=== PATIENT | male | born 1940 | race Caucasian/White ===

== ENCOUNTER 2024-08-05 06:02 | Day surgery (SDC) | payer BC, MEDICARE, SELFPAY ==
[2024-08-02 08:45] VITALS: BMI 31.4
[2024-08-05] VITALS (24 sets, daily range): BP systolic 106–168; BP diastolic 55–141; BMI 31.4
[2024-08-05 07:24] LABS: Glucose - Point of Care 130 mg/dl (70-99)
[2024-08-05 09:02] LABS: ACT-LR - POC 253 Seconds (116-155)
[2024-08-05 09:22] LABS: ACT-LR - POC 255 Seconds (116-155)
--- NOTE | 2024-08-05 09:38 | ITS.CL.ABL ---
Transitional Nurse - Ablation
Ablation
Procedure Report:
ELECTROPHYSIOLOGY ABLATION STUDY
�
DATE:: August 05, 2024�����������������������������REFERRING: Dr. PO Giordano
�
INDICATION: Paroxysmal supraventricular tachycardia in the form of atrial fibrillation.��Recent hospitalization for urinary tract infection and multiple medical issues also with a prolonged rehabilitation stay. Prior history of CABG
�
HISTORY: See H and P.��As above
�
ANTIARRHYTHMIC DRUG: Dofetilide 125 mics twice daily
�
PRE-PROCEDURE ERIKA: No atrial thrombus on intracardiac ultrasound
�
PRESENTING RHYTHM: Sinus bradycardia with first-degree AV delay
�
'TIME-OUT':��called and confirmed.
�
SEDATION/ANESTHESIA:��provided via the anesthesia department using general anesthesia (LMA).
�
INTRAVENOUS/ARTERIAL ACCESS:
Right femoral venous - 8Fr upgraded to an 18 Cymraes 30 cm short sheath through which the 16.8 variable sheath was utilized through. The patient had prior bilateral hip replacements and extremely tortuous venous anatomy requiring serial dilation
Left femoral venous - 8 Fr, 6 Fr
[id number]-zc-uwwor stitch to both groins. Access was under direct ultrasound guidance. Wires were confirmed in each femoral vein prior to sheath placement.
Ultrasound guidance for bilateral femoral vein access was utilized by me to obtain access with demonstration of normal anatomy
CHADS-VASC Score:
�
HAS-Bled Score
�
PROCEDURE:
1.��A decapolar CS catheter was placed within the CS for mapping and pacing.��This was also used as the reference catheter for the 3-D map.
�
2. The intracardiac ultrasound catheter was positioned in the RA to identify the FO for targeting of transseptal puncture, assist��in identification of the pulmonary vein ostia, monitoring pre and post ablation pulmonary vein flow velocities,
monitoring for 'bubble' formation during RF application as a sign of thermal injury,��and to monitor for pericardial effusion during mapping and ablation procedure.���Left atrial size, LV ejection fraction, and pulmonary vein flows were monitored
pre and post ablation procedure. The other valves were inspected and found to be free of significant regurgitation or stenosis.
�
3.��Half of the calculated heparin bolus was administered prior to the first transeptal puncture.��Transseptal puncture was performed to diagnose RA and LA pressure so that safety of LA mapping and ablation could be further assessed, and to access
the left atrium and pulmonary veins for mapping and ablation.��This entailed advancing an 16.8 Cymraes femoral pulse sheath with dilator into the superior vena cava and with radiofrequency wire crossed in the left atrium and withdrawing both
(monitoring intracardiac ultrasound, fluoroscopy and tip pressure) with the tip oriented toward the atrial septum.��The fossa ovalis was engaged (indicated by sudden displacement of the sheath tip as well as tenting of the fossa seen on intracardiac
ultrasound).��Left atrial access required a pass with the Brockenbrough needle extended.��Left atrial catheter position was confirmed by pressure monitoring (RA mean pressure 8 mm Hg and LA mean pressure 14 mm Hg), LA saturation (99%),��as well as
fluoroscopy.��The sheath was advanced over the dilator and positioned in the left atrium.���The remainder of the calculated heparin bolus was administered and heparin was
infused to maintain ACT at 300 -350 seconds throughout the case.
�
4.��RA pacing was performed via the proximal decapolar poles and LA pacing was performed via the distal decapolar poles.
�
5. A quadrapolar catheter was first positioned at the His position for His Bundle recording which was tagged via the 3-D Navex sytem, and then passed to the RVA for RV pacing and recording.
�
6. The grid and Farapulse catheter were placed in each of the LIPV, LSPV, RSPV and the RIPV.��
�
7.��Next, a 3-D map was created using Navex.���A 3-D reconstructed CT image was compared to the 3-D Navex map to assist in anatomic interpretation, mapping and ablation.��The CT image and the NavX image were fused.
�
8. A total of 48 lesions were given to each of the 4 pulmonary veins and the left atrial posterior wall. The posterior wall lesions were given in the flower pose. Biscuit basket and flower pose lesions were given to each of the 4 pulmonary veins.
Once entrance block was confirmed in all 4 pulmonary veins and the posterior wall the grid catheter was brought back to the left atrium and confirmed entrance and exit block in all 4 pulmonary veins and electrical silence the left atrial posterior
wall. EP study demonstrated normal AV node and sinus lindsey function with a baseline first-degree AV delay and AV Wenckebach less than 500 ms. There was no significant pause nor wall motion abnormality on intracardiac ultrasound seen post procedure.
�
9. Normal sinus node and AV lindsey function noted.
�
TOTAL FLOURO TIME: 12.1 minutes
�
TOTAL RF DURATION: 0 minutes
�
REVERSAL OF HEPARIN: 35 mg of protamine, slow IV administration
�
COMPLICATIONS:
None
Intracardiac US shows no pericardial effusion post ablation.
�
SUMMARY:��
Complex left atrial mapping and ablation.
Isolation of the pulmonary veins and left atrial posterior wall
�
RECOMMENDATIONS:
1. Admit to monitored bed.��
2. Resume anticoagulation
3.��Out of bed 4 hours
4.��Will plan discharge on 06 August if stable given his recent long hospital stay and rehab stay with recent discharge
�
Copy to: Dr. PO Giordano
�
[2024-08-05] MEDS: ANESTHETIC LOZENGE 1 LOZENGE PO ×3 (10:39→18:03)
[2024-08-05 10:48] LABS: Glucose - Point of Care 130 mg/dl (70-99)
[2024-08-05 12:04] LABS: Glucose - Point of Care 188 mg/dl (70-99)
[2024-08-05] MEDS: TYLENOL 650 MG PO ×2 (12:18→18:00)
[2024-08-05] MEDS: PRANDIN 2 MG PO ×2 (13:49→18:00)
[2024-08-05] MEDS: NOVOLOG FLEXPEN-MODERATE RESISTANCE 1 UNITS SC (13:49)
--- NOTE | 2024-08-05 14:15 | CM ---
spoke to pt in room, he is prev indep, lives with his in a 3 story home with 1 stepto enter. he denies any dc plannng needs or dme's. plan is for dc to home when medically stable.
[2024-08-05 17:23] LABS: Glucose - Point of Care 277 mg/dl (70-99)
[2024-08-05] MEDS: NOVOLOG FLEXPEN-MODERATE RESISTANCE 5 UNITS SC (18:00)
--- NOTE | 2024-08-05 19:40 | PTCARENOTE ---
Pt received post pulsefield ablation. Bilateral femoral sites with dry and intact dressings. Figure of eight sutures removed without problem, no sign of bleeding or hematoma, doppler posterior tibial pulses present. Pt has chronic vazquez catheter in
place. Pt c/o headache and right big toe pain, tylenol given with some relief. Pt is a fall risk, precautions in place and he is calling for assistance. OOB with one assist using a walker. Telemetry shows sinus rhythm with first degree AV block and
RBBB.
[2024-08-05] MEDS: ELIQUIS 5 MG PO (20:36)
[2024-08-05 21:02] LABS: Glucose - Point of Care 288 mg/dl (70-99)
--- NOTE | 2024-08-05 23:34 | PTCARENOTE ---
received patient at the change of shift. AAOx3. denies any pain. SR with a first degree AVB and BBB-70s-80s. bp stable. b/l groin site intact. + doppler pulses. vazquez care provided. yellow/cloudy urine. new stat lock on right upper leg. reviewed
plan of care with patient and verbalized understanding. patient turning and repositioning self in bed. call scherer within reach.
[2024-08-06] VITALS (8 sets, daily range): BP systolic 93–137; BP diastolic 52–76; BMI 31.5
[2024-08-06 03:35] LABS: Hematocrit 27.1 % (39.0-52.0); Hemoglobin 9.2 g/dL (13.0-18.0); Mean Corp Hgb Conc. 33.9 g/dL (33.0-37.0); Mean Corpuscular Hgb 31.2 pg (27.0-31.0); Mean Corpuscular Volume 91.9 fL (80.0-94.0); Mean Platelet Volume 11.2 fL (7.4-10.4); Platelet Count 189 10^3/uL (130-400); Red Blood Cell Count 2.95 10^6/uL (4.70-6.10); Red Cell Dist. Width 14.5 % (11.5-14.5); White Blood Cell Count 11.8 10^3/uL (4.8-10.8)
[2024-08-06 03:58] LABS: Blood Urea Nitrogen 39 mg/dl (9-20); Calcium 9.4 mg/dl (8.4-10.2); Carbon Dioxide 24 mmol/L (22-30); Chloride 98 mmol/L (98-107); Estimated Creatinine Clearance 39 ml/min; Glucose 188 mg/dl (70-99); Magnesium 1.7 mg/dl (1.6-2.3); Potassium 4.8 mmol/L (3.5-5.1); Sodium 137 mmol/L (135-145); eGFR 45.34
[2024-08-06 07:21] LABS: Glucose - Point of Care 201 mg/dl (70-99)
[2024-08-06] MEDS: SYNTHROID 88 MCG PO (07:38)
[2024-08-06] MEDS: NOVOLOG FLEXPEN-MODERATE RESISTANCE 3 UNITS SC (08:46)
[2024-08-06] MEDS: JANUVIA 100 MG PO (08:47)
[2024-08-06] MEDS: FEOSOL 325 MG PO (08:47)
[2024-08-06] MEDS: PROTONIX 40 MG PO (08:47)
[2024-08-06] MEDS: MAGNESIUM OXIDE 500 MG PO (08:47)
[2024-08-06] MEDS: CRESTOR 10 MG PO (08:47)
[2024-08-06] MEDS: PRANDIN 2 MG PO ×2 (08:47→17:33)
[2024-08-06] MEDS: TOPROL XL 12.5 MG PO (08:48)
[2024-08-06] MEDS: TYLENOL 650 MG PO ×3 (08:48→21:01)
[2024-08-06] MEDS: ELIQUIS 5 MG PO ×2 (08:48→20:55)
[2024-08-06 09:03] LABS: Glycohemoglobin (HgbA1c) 6.9 % (4.0-5.6)
--- NOTE | 2024-08-06 09:35 | W.PN.CARDCBS ---
Addendum entered and electronically signed by Bola Banuelos MD 08/06/24 12:38:
just received communication from my team (Pamella GUARDADO) that family noticed some word finding difficulty this am. I found him to be quite talkative without subjective word finding issue-?delirium.
He was walking the halls and preparing for discharge.
As such I will send UA/urinalysis/poss CXR and plan neuro consult. Most likely post procedure delirium (<24hrs out from general anesthesia) on top of recent prolonged hospital and rehab stay and I had not noticed anything localizing to date. I will
ask Neurology to evaluate and defer to their opinion and plan 24hrs of observation with recheck Hgb and creatinine friday am with a focus on keeping him as active as possible given prolonged hospital stay. I had discussed with patient and
that he was a higher risk for procedure given recent hospitalization but ultimately we decided to proceed given how he has decompensated in the past with AF and his bleeding risks.
-will follow closely
Addendum entered and electronically signed by Bola Banuelos MD 08/06/24 12:25:
patient seen and examined this am
non focal
very talkative-we discussed the Sydnie recent trouble and he told me he feels well
agree with FLAME BURNER note and assessment
agree with FLAME BURNER plan
exam:
non focal neurologically this am
groin cdi
tele reviewed
remainder per FLAME BURNER note
Impression:
Symptomatic persistent Afib
Chronic ROMULO follows with heme/onc outpt Dr. Ackerman
CAD post CABGx4
Hyperlipidemia
GERD
Hypothyroidism
BPH
Prostate Cancer XRT
prior TURP
MEGHAN
orthostatic hypotension
DM2
Recent UTI/Sepsis with Chronic Dumont cath
Ambulatory dysfunction/falls
h/o LE DVT
h/o THR
Plan:
post PVI/Farapulse 08/05/24
groins stable
tele SR 1deg AVB with PVC's
Hbg dropped 11.3 -> 9.2, can have hemolysis with Farapulse, continue ferrous sulfate, history of ROMULO
SARATH vs CKD - Cr slightly elevated 1.2 -> 1.5, when hospitalized in April for urosepsis Cr was 2.2
Will repeat CBC/BMP on Fri next week
continue OAC Eliquis
Stop Dofetilide and continue metoprolol
Activity restrictions reviewed
f/u EP DCA in 3 mo
continue cardiac care with Dr. Giordano
stable for d/c home today
Original Note:
Today's Communication / Plan
-
stable for d/c home
f/u CBC/BMP Fri
Impression / Plan
-
PCP: Abelino Garrido, DO
CDY: Dr. Giordano
Impression:
Symptomatic persistent Afib
Chronic ROMULO follows with heme/onc outpt Dr. Ackerman
CAD post CABGx4
Hyperlipidemia
GERD
Hypothyroidism
BPH
Prostate Cancer XRT
prior TURP
MEGHAN
orthostatic hypotension
DM2
Recent UTI/Sepsis with Chronic Dumont cath
Ambulatory dysfunction/falls
h/o LE DVT
h/o THR
Plan:
post PVI/Farapulse 08/05/24
groins stable
tele SR 1deg AVB with PVC's
Hbg dropped 11.3 -> 9.2, can have hemolysis with Farapulse, continue ferrous sulfate, history of ROMULO
SARATH vs CKD - Cr slightly elevated 1.2 -> 1.5, when hospitalized in April for urosepsis Cr was 2.2
Will repeat CBC/BMP on Fri next week
continue OAC Eliquis
Stop Dofetilide and continue metoprolol
Activity restrictions reviewed
f/u EP DCA in 3 mo
continue cardiac care with Dr. Giordano
stable for d/c home today
Progress Note - Ict Managers
Subjective
Date of Service: August 06, 2024
denies cp, sob, did not sleep and having some forgetfulness this am
Objective
Labs:
08/06/24 02:51
08/06/24 02:51
Labs
Hgb 9.2 g/dL (13.0-18.0) L 08/06/24 02:51
Hct 27.1 % (39.0-52.0) L 08/06/24 02:51
Plt Count 189 10^3/uL (130-400) 08/06/24 02:51
Sodium 137 mmol/L (135-145) 08/06/24 02:51
Potassium 4.8 mmol/L (3.5-5.1) 08/06/24 02:51
BUN 39 mg/dl (9-20) H 08/06/24 02:51
Creatinine 1.5 mg/dL (0.7-1.3) H 08/06/24 02:51
Glucose 188 mg/dl (70-99) H 08/06/24 02:51
Vital Signs and I&O:
Vital Signs
Temp Pulse Resp BP Pulse Ox
97.9 F 65 18 102/56 98
08/06/24 07:12 08/06/24 08:30 08/06/24 07:12 08/06/24 07:14 08/06/24 08:54
Vital Signs
Temp Pulse Resp BP Pulse Ox
97.9 F 65 18 102/56 98
08/06/24 07:12 08/06/24 08:30 08/06/24 07:12 08/06/24 07:14 08/06/24 08:54
Intake & Output
08/04/24 08/05/24 08/06/24 08/07/24
06:59 06:59 06:59 06:59
Intake Total 640 / 640
Output Total 1600 / 1600 700 / 700
Balance -960 / -960 -700 / -700
Physical Exam
Physical Exam
NAD, AOX2-3, forgetful
S1, S2, RRR
CTAB, non labored
SNTND bsx4
b/l groins c/d/i no HT< soft
--- NOTE | 2024-08-06 10:36 | W.DS.TRANS ---
DC Summary - [facility]ness [facility] Manager
-
Discharge Instructions:
Discharge Diagnosis/Procedures Afib post ablation
Diet Low Cholesterol,Diabetic, Carb Controlled
Driving Restrictions No driving for 24 hours
Blood Work Check CBC/BMP on Fri
Instructions:
Stand-Alone Forms: DC Instructions- Cath/EP Lab
Changes to Home Medications: Yes
Discharge Medications:
DC Medications w/original date entered in [facility]
Skin Protectant 1 applic topical PRN PRN to bony prominences as needed 07/23/24
Skin Protectant 1 applic topical Q8H skin care 07/23/24
acetaminophen 325 mg tablet 650 mg PO Q6H PRN mild pain/fever 07/23/24
apixaban 5 mg tablet 5 mg PO BID 07/23/24
cholecalciferol (vitamin D3) 10 mcg (400 unit) tablet 10 mcg PO DAILY 07/23/24
droxidopa 100 mg capsule 100 mg PO TID 07/23/24
ferrous sulfate 325 mg (65 mg iron) tablet 325 mg PO DAILY 07/23/24
insulin lispro 100 unit/mL subcutaneous solution (Humalog U-100 Insulin) 1 sliding scale dose SC DIRECTED 07/23/24
levothyroxine 88 mcg tablet 88 mcg PO DAILY 07/23/24
magnesium hydroxide 400 mg/5 mL oral suspension (Milk of Magnesia) 30 ml PO DAILY PRN constipation, no BM 48hrs 07/23/24
magnesium oxide 400 mg PO DAILY 07/23/24
metoprolol succinate 25 mg tablet,extended release 24 hr 12.5 mg PO DAILY 07/23/24
rdykzalu-fix-gifpy acid 0.4 mg-lycopene 300 mcg-lutein 250 mcg tablet (CertaVite Senior) 1 tab PO DAILY 07/23/24
omeprazole 20 mg tablet,delayed release 20 mg PO DAILY 07/23/24
repaglinide 2 mg tablet 2 mg PO AC 07/23/24
rosuvastatin 10 mg tablet 10 mg PO DAILY 07/23/24
saxagliptin 2.5 mg tablet 2.5 mg PO DAILY 07/23/24
sodium phosphates 19 gram-7 gram/118 mL enema (Fleet Enema) 118 ml NV ONCE PRN if no BM in 72 hours 07/23/24
Home Medication Changes
stopped dofetilide
Pending Results: No
[2024-08-06 11:14] LABS: Glucose - Point of Care 187 mg/dl (70-99)
[2024-08-06] MEDS: NOVOLOG FLEXPEN-MODERATE RESISTANCE 1 UNITS SC (11:59)
[2024-08-06 13:14] LABS: Urine Albumin 1+ (Neg - Trace); Urine Bilirubin 1+ (Negative); Urine Character Slightly Cloudy (Clear); Urine Color Yellow; Urine Glucose Negative (Negative); Urine Ketone Trace (Negative); Urine Leukocyte 2+ (Negative); Urine Nitrite Positive (Negative); Urine Occult Blood 4+ (Negative); Urine Urobilinogen Negative (Neg - 1+)
[2024-08-06 13:59] LABS: Urine Bacteria Few (Negative); Urine White Cell 70-80 /HPF (0-5)
--- NOTE | 2024-08-06 14:10 | CON.NEURO4 ---
Consultation - Neurology 4
-
CONSULTING PHYSICIAN: Arcadio Plaza MD(Neurology)
REFERRING PHYSICIAN: Cardiology/Hospitalist
DICTATED BY: Arcadio Plaza MD
DATE/TIME OF REQUEST: 08/06/2024
DATE/TIME OF CONSULTATION: 08/06/2024 1330
Reason for Consultation: AMS
History of Present Illness:
This is a 83 year old left handed (male who has admitted presented to the hospital with (chief complaint) of cardia arrhythmia. He gives a h/o Symptomatic persistent Afib, Chronic iron deficiency anemia, CAD post
CABGx4,Hyperlipidemia,GERD,Hypothyroidism, BPH, Prostate Cancer XRT, prior TURP, MEGHAN, orthostatic hypotension, DM2, Recent UTI/Sepsis, Ambulatory dysfunction/falls, LE DVT, hip repair who was in refractory atrial fibrillation and underwent elective
pulmonic vein isolation with ablation by FARAPULSE on 08/05
This morning he was to be discharged. As per family pat conversation was incoherent and tangential failed to recognize or daughter. No weakness of face or extremities. Symptoms resolved in 10-15 minutes.
On my exam pat is at baseline, no speech cognitive or motor deficits
Past Medical History: As above
Surgical History: As above
Family History: [place]
Social History: lives at home with his
Allergies: Erythromycin
Home Medications: Addendum
Review of Symptoms:
Patient denies any fever, headache, chest pain, shortness of breath, GI or symptoms.
�Per the HPI.�All systems are reviewed negative except above.
�-
Vital Signs:
The patient has a Temp 36.6 C Pulse 68 Resp18 BP 95/52 Pulse Ox98
Physical Exam:
The patient is afebrile, heart sounds S1 and S2 are (regular / irregular), and chest is clear to auscultation bilaterally.
-
NIH Stroke Scale (if applicable):
I performed the NIH stroke scale on the patient. The patient scored ( 0 ) points on the NIH stroke scale assessment, which were assigned as follows:
Neurologic Examination:
The patient is awake, alert and oriented x person place and time. (He is able to follow commands and answer questions appropriately. Speech is fluent with intact c There is no aphasia or dysarthria. On cranial nerve assessment, pupils are 3 mm
bilateral, round and reactive to light and accommodation. Visual lo are full. Extraocular movements are intact. Facial sensations are intact and bilaterally symmetrical, there is no facial asymmetry. Hearing is intact bilaterally to normal
conversation volume. Tongue palate and uvula are midline. Sternocleidomastoid strengths are full bilaterally. Motor strengths are 5/5 bilateral upper and lower extremities on medical research [place] scale. There is no drift or involuntary movement
noted. Deep tendon reflexes are 2+ bilateral upper and lower extremities and Babinski is absent bilaterally. Sensations of pain, touch, temperature and vibration are intact and bilaterally symmetrical. There was no extinction noted on double
simultaneous stimulation. Coordination is intact by finger to nose bilaterally.
Lab Results: Addendum
Neuro Imaging: CT head: Atrophy Small vessel disease. Normal ventricles. No bleed
Impression:
Mr. IVONNE SARKAR is a 83 year old M who has presented to the hospital with (symptoms/chief complaint) of cardiac arrhythmia s/p pacemaker placement who had a transient episode of fluent aphasia and is at baseline on my exam with normal speech and
no cranial nerve or motor deficit
Differentials for the patient's presentation include:
1. TIA
2. Delayed effect of anesthetic agent
3. Seizure
Recommendations:
1. CT head
2. EEG
3. Continue current therapies
Discussed patient care with: Cardiology and family
Allergies
-
Allergies
Allergy/AdvReac Type Severity Reaction Status Date / Time
erythromycin base Allergy Unknown Unknown Verified 08/05/24 07:47
Vital Signs and Labs
-
Vital Signs and Labs:
Vital Signs
Temp Pulse Resp BP Pulse Ox
36.6 C 68 18 95/52 98
08/06/24 10:46 08/06/24 10:46 08/06/24 10:46 08/06/24 10:46 08/06/24 08:54
Lab Results
08/06/24 02:51
08/06/24 02:51
Sodium 137 mmol/L (135-145) 08/06/24 02:51
Potassium 4.8 mmol/L (3.5-5.1) 08/06/24 02:51
BUN 39 mg/dl (9-20) H 08/06/24 02:51
Glucose 188 mg/dl (70-99) H 08/06/24 02:51
Calcium 9.4 mg/dl (8.4-10.2) 08/06/24 02:51
Medications
-
Active Medications
Generic Name Dose Route Start Last Admin
Trade Name Freq PRN Reason Stop Dose Admin
Acetaminophen 650 mg 08/05/24 08:17 08/06/24 12:12
Acetaminophen 325 Mg Tablet PO 09/02/24 08:16 650 mg
Q4HPRN PRN Administration
MILD PAIN
Al Hydrox/Mg Hydrox/Simethicone 30 ml 08/05/24 08:17
Mag/Al/Simethicone Suspension 30 Ml Cup PO 09/02/24 08:16
Q6HPRN PRN
INDIGESTION
Apixaban 5 mg 08/05/24 20:00 08/06/24 08:48
Apixaban (Eliquis) 5 Mg Tablet PO 09/02/24 19:59 5 mg
BID HARLEY Administration
Benzocaine/Menthol 1 lozenge 08/05/24 08:17 08/05/24 18:03
Benzocaine/Menthol Lozenge PO 09/02/24 08:16 1 lozenge
Q4HPRN PRN Administration
sore throat
Dextrose 12.5 grams 08/05/24 08:19
Dextrose 50% (0.5 Grams/Ml) 50 Ml Syringe IV 09/02/24 08:18
[id number] PRN
hypoglycemia
Protocol
Ferrous Sulfate 325 mg 08/06/24 08:00 08/06/24 08:47
Ferrous Sulfate 325 Mg Tablet PO 09/03/24 07:59 325 mg
DAILY HARLEY Administration
Glucagon 1 mg 08/05/24 08:19
Glucagon 1 Mg Vial IM 09/02/24 08:18
PRN PRN
hypoglycemia
Protocol
Insulin Aspart 0 units 08/05/24 11:30 08/06/24 11:59
Insulin Aspart Moderate Resistance 300 Units/3 Ml Pen.Injctr SC 09/02/24 11:29 1 units
AC HARLEY Administration
Protocol
Levothyroxine Sodium 88 mcg 08/06/24 06:00 08/06/24 07:38
Levothyroxine 88 Mcg Tablet PO 09/03/24 05:59 88 mcg
DAILY@0600 HARLEY Administration
Magnesium Hydroxide 30 ml 08/05/24 08:17
Milk Of Magnesia 30 Ml Cup PO 09/02/24 08:16
DAILYPRN PRN
CONSTIPATION
Magnesium Oxide 500 mg 08/06/24 08:00 08/06/24 08:47
Magnesium Oxide 500 Mg Tablet PO 09/03/24 07:59 500 mg
DAILY HARLEY Administration
Metoprolol Succinate 12.5 mg 08/06/24 08:00 08/06/24 08:48
Metoprolol 12.5 Mg Extended Release Dose (1/2 Of 25 Mg Xl Tablet) PO 09/03/24 07:59 12.5 mg
DAILY HARLEY Administration
Non-Formulary Medication 100 mg 08/05/24 16:00
Droxidopa PO 09/02/24 15:59
TID HARLEY
Ondansetron HCl 4 mg 08/05/24 08:17
Ondansetron 4 Mg/2 Ml Vial IV 09/02/24 08:16
Q8HPRN PRN
nausea
Pantoprazole Sodium 40 mg 08/06/24 08:00 08/06/24 08:47
Pantoprazole 40 Mg Delayed Release Tablet PO 09/03/24 07:59 40 mg
DAILY HARLEY Administration
Repaglinide 2 mg 08/05/24 11:30 08/06/24 08:47
Repaglinide 2 Mg Tablet PO 09/02/24 11:29 2 mg
AC HARLEY Administration
Rosuvastatin Calcium 10 mg 08/06/24 08:00 08/06/24 08:47
Rosuvastatin (Crestor) 10 Mg Tablet PO 09/03/24 07:59 10 mg
DAILY HARLEY Administration
Sitagliptin Phosphate 100 mg 08/06/24 08:00 08/06/24 08:47
Sitagliptin (Januvia) 100 Mg Tablet PO 09/03/24 07:59 100 mg
DAILY HARLEY Administration
Home Medications
�Medication �Instructions �Recorded
Skin Protectant 1 applic topical PRN PRN to bony 07/23/24
prominences as needed
Skin Protectant 1 applic topical Q8H skin care 07/23/24
acetaminophen 325 mg tablet 650 mg PO Q6H PRN mild pain/fever 07/23/24
apixaban 5 mg tablet 5 mg PO BID 07/23/24
cholecalciferol (vitamin D3) 10 10 mcg PO DAILY 07/23/24
mcg (400 unit) tablet
droxidopa 100 mg capsule 100 mg PO TID 07/23/24
ferrous sulfate 325 mg (65 mg 325 mg PO DAILY 07/23/24
iron) tablet
insulin lispro 100 unit/mL 1 sliding scale dose SC DIRECTED 07/23/24
subcutaneous solution (Humalog
U-100 Insulin)
levothyroxine 88 mcg tablet 88 mcg PO DAILY 07/23/24
magnesium hydroxide 400 mg/5 mL 30 ml PO DAILY PRN constipation, 07/23/24
oral suspension (Milk of Magnesia) no BM 48hrs
magnesium oxide 400 mg PO DAILY 07/23/24
metoprolol succinate 25 mg 12.5 mg PO DAILY 07/23/24
tablet,extended release 24 hr
yyqhvjhl-amv-tfwes acid 0.4 1 tab PO DAILY 07/23/24
mg-lycopene 300 mcg-lutein 250 mcg
tablet (CertaVite Senior)
omeprazole 20 mg tablet,delayed 20 mg PO DAILY 07/23/24
release
repaglinide 2 mg tablet 2 mg PO AC 07/23/24
rosuvastatin 10 mg tablet 10 mg PO DAILY 07/23/24
saxagliptin 2.5 mg tablet 2.5 mg PO DAILY 07/23/24
sodium phosphates 19 gram-7 118 ml [place] ONCE PRN if no BM in 72 07/23/24
gram/118 mL enema (Fleet Enema) hours
--- NOTE | 2024-08-06 14:15 | HPS.HSE ---
Addendum entered and electronically signed by Jennifer Livingston MD 08/06/24 19:19:
Urology recommended against exchanging Dumont due to complex anatomy and difficulty placing.
Addendum entered and electronically signed by Jennifer Livingston MD 08/06/24 15:20:
Can continue oral diabetic medications.
Original Note:
Family Physician
-
Family Physician: Abelino Garrido
Chief Complaint
-
Allergies
Allergy/AdvReac Type Severity Reaction Status Date / Time
erythromycin base Allergy Unknown Unknown Verified 08/05/24 07:47
Home Medications
Skin Protectant 1 applic topical PRN PRN to bony prominences as needed 07/23/24
Skin Protectant 1 applic topical Q8H skin care 07/23/24
acetaminophen 325 mg tablet 650 mg PO Q6H PRN mild pain/fever 07/23/24
apixaban 5 mg tablet 5 mg PO BID 07/23/24
cholecalciferol (vitamin D3) 10 mcg (400 unit) tablet 10 mcg PO DAILY 07/23/24
droxidopa 100 mg capsule 100 mg PO TID 07/23/24
ferrous sulfate 325 mg (65 mg iron) tablet 325 mg PO DAILY 07/23/24
insulin lispro 100 unit/mL subcutaneous solution (Humalog U-100 Insulin) 1 sliding scale dose SC DIRECTED 07/23/24
levothyroxine 88 mcg tablet 88 mcg PO DAILY 07/23/24
magnesium hydroxide 400 mg/5 mL oral suspension (Milk of Magnesia) 30 ml PO DAILY PRN constipation, no BM 48hrs 07/23/24
magnesium oxide 400 mg PO DAILY 07/23/24
metoprolol succinate 25 mg tablet,extended release 24 hr 12.5 mg PO DAILY 07/23/24
wekuhgxs-eqa-fmsmp acid 0.4 mg-lycopene 300 mcg-lutein 250 mcg tablet (CertaVite Senior) 1 tab PO DAILY 07/23/24
omeprazole 20 mg tablet,delayed release 20 mg PO DAILY 07/23/24
repaglinide 2 mg tablet 2 mg PO AC 07/23/24
rosuvastatin 10 mg tablet 10 mg PO DAILY 07/23/24
saxagliptin 2.5 mg tablet 2.5 mg PO DAILY 07/23/24
sodium phosphates 19 gram-7 gram/118 mL enema (Fleet Enema) 118 ml [place] ONCE PRN if no BM in 72 hours 07/23/24
History of Present Illness
83-year-old male past medical history of persistent atrial fibrillation status post PVI yesterday, CAD status post CABG x 4, iron deficiency anemia, hyperlipidemia, GERD, hypothyroidism, BPH, prostate cancer status post TURP with chronic Dumont
catheter, obstructive sleep apnea, orthostatic hypotension, diabetes, history of left lower extremity DVT presented to the hospital yesterday for PVI for persistent atrial fibrillation. Patient was going to be discharged this morning however he was
noted to have word finding difficulty with concern for postprocedural delirium.
As per nursing patient he was having word finding difficulty and was unable to do his crossword in the morning. He complains of headache but denies any other symptoms at this time. His word finding difficulty is improved significantly.
He denies any blurry vision, focal weakness, numbness or tingling. He denies any shortness of breath, cough, nausea or vomiting or diarrhea.
He is not sure when his Dumont catheter was exchanged.
Medical History
Past Medical History
Past Medical History: Reports Other ( persistent atrial fibrillation status post PVI yesterday, CAD status post CABG x 4, iron deficiency anemia, hyperlipidemia, GERD, hypothyroidism, BPH, prostate cancer status post TURP with chronic Dumont
catheter, obstructive sleep apnea, orthostatic hypotension, diabetes, history of left lower extr)
Past Surgical History: Reports None
Social History
Tobacco: Non-smoker
Alcohol: None
Drug: None
Family History
Family History: Not pertinent
Allergies / Home Medications
Allergies reflects when Allergies were last updated in [facility].
Home Medications with original date entered in [facility]
Allergy/Medication List:
Allergies
Allergy/AdvReac Type Severity Reaction Status Date / Time
erythromycin base Allergy Unknown Unknown Verified 08/05/24 07:47
Home Medications
Skin Protectant 1 applic topical PRN PRN to bony prominences as needed 07/23/24
Skin Protectant 1 applic topical Q8H skin care 07/23/24
acetaminophen 325 mg tablet 650 mg PO Q6H PRN mild pain/fever 07/23/24
apixaban 5 mg tablet 5 mg PO BID 07/23/24
cholecalciferol (vitamin D3) 10 mcg (400 unit) tablet 10 mcg PO DAILY 07/23/24
droxidopa 100 mg capsule 100 mg PO TID 07/23/24
ferrous sulfate 325 mg (65 mg iron) tablet 325 mg PO DAILY 07/23/24
insulin lispro 100 unit/mL subcutaneous solution (Humalog U-100 Insulin) 1 sliding scale dose SC DIRECTED 07/23/24
levothyroxine 88 mcg tablet 88 mcg PO DAILY 07/23/24
magnesium hydroxide 400 mg/5 mL oral suspension (Milk of Magnesia) 30 ml PO DAILY PRN constipation, no BM 48hrs 07/23/24
magnesium oxide 400 mg PO DAILY 07/23/24
metoprolol succinate 25 mg tablet,extended release 24 hr 12.5 mg PO DAILY 07/23/24
qejhntuf-cva-nhyln acid 0.4 mg-lycopene 300 mcg-lutein 250 mcg tablet (CertaVite Senior) 1 tab PO DAILY 07/23/24
omeprazole 20 mg tablet,delayed release 20 mg PO DAILY 07/23/24
repaglinide 2 mg tablet 2 mg PO AC 07/23/24
rosuvastatin 10 mg tablet 10 mg PO DAILY 07/23/24
saxagliptin 2.5 mg tablet 2.5 mg PO DAILY 07/23/24
sodium phosphates 19 gram-7 gram/118 mL enema (Fleet Enema) 118 ml [place] ONCE PRN if no BM in 72 hours 07/23/24
Review of Systems
-
History Source: Patient
A 12 point ROS was completed and negative except as noted: Yes
Constitutional: Reports No Symptoms
EENT: Reports No Symptoms
Respiratory: Reports No Symptoms
Cardiac: Reports No Symptoms
Abdomen/GI: Reports No Symptoms
: Reports No Symptoms
Musculoskeletal: Reports No Symptoms
Skin: Reports No Symptoms
Neurological: Reports See HPI
Endocrine: Reports No Symptoms
Hematologic/Lymphatic: Reports No Symptoms
Psych: Reports No Symptoms
Physical Exam
Vital Signs
Vital Signs
Temp Pulse Resp BP Pulse Ox
97.9 F 68 18 95/52 98
08/06/24 10:46 08/06/24 10:46 08/06/24 10:46 08/06/24 10:46 08/06/24 08:54
Physical Exam
General: Well Developed, Well Nourished and No Apparent Distress
HEENT: NormoCephalic, Moist mucous membranes and Atraumatic
Respiratory: Clear
Cardiac: S1/S2 and Regular Rhythm; No Murmur or Rub
GI: Soft, Non Tender, Non Distended and Normal Bowel Sounds; No Organomegaly
Rectal: Deferred by Provider
Musculoskeletal: No Clubbing, No Cyanosis and No Edema
Skin: No Rash
Neuro: Nonfocal/grossly intact
Laboratory Results
-
08/06/24 02:51
08/06/24 02:51
Data Reviewed
-
Lab Data: Labs Reviewed by me
Old Records: Reviewed
Impression/Plan
-
IMPRESSION:
PLAN:
# Postprocedural delirium possibly secondary to catheter associated UTI
-Significant improvement in mental status
-No focal neurological deficits
-Leukocytosis
-UA shows 70-80 WBC, positive nitrates, slightly cloudy urine
-Urine culture pending
-Ceftriaxone
-Exchange Dumont catheter, outpatient follow up with his urologist
# Acute kidney injury
-Creatinine 1.5 from 1.2
-gentle IV fluids
Persistent A-fib status post PVI yesterday
-Continue Eliquis
CAD status post CABG x 4
-Continue metoprolol
Chronic iron deficiency anemia
-Hemoglobin dropped from 11.3-9.2
-Continue to monitor
Hyperlipidemia
-Continue statin
GERD
Hypothyroidism
-Continue levothyroxine
BPH
Prostate cancer status post radiation with history of TURP
History of recent UTI/sepsis with chronic Dumont catheter
Obstructive sleep apnea
Orthostatic hypotension
-Continue droxidopa
Type 2 diabetes
-Hold repaglinide, saxagliptin
-Insulin sliding scale
History of amatory dysfunction/falls
History of left lower DVT
Full code
DVT prophylaxis�Eliquis
Regular diet
[2024-08-06] MEDS: PRANDIN PO (14:41)
[2024-08-06] MEDS: NSS 1000 IV (16:47)
[2024-08-06] MEDS: STERILE WATER FOR INJECTION 10 ML IV (16:48)
[2024-08-06] MEDS: ROCEPHIN 1000 MG IV (16:48)
[2024-08-06 17:37] LABS: Glucose - Point of Care 122 mg/dl (70-99)
[2024-08-06] MEDS: NOVOLOG FLEXPEN-MODERATE RESISTANCE SC (18:13)
--- NOTE | 2024-08-06 18:41 | PTCARENOTE ---
At @08:45 pt stated he was concerned about his memory for names and realized he was mispelling words in his puzzles but he was able to correct his mistakes with help. Pt also c/o slight headache. Pt was given tylenol. Pt was forgetful but also very
aware of it. Pt seen by Flavia Rose NP, pt talking clearly and walking around room with a walker without problem. Pt's family arrived @12:30 and stated that his speech was off and he definitely 'wasn't himself'. Pt now garbling a few words at the end
of sentences. Pt with no other neuro deficit with equal strength in both arms and legs, no facial weakness. Flavia Rose NP came immediately to see pt. Neurology consulted, pt had CT scan head which was normal, EEG also done. Pt recovered completely to
his previous baseline of being very articulate and talkative. Urine sent , positive for UTI. Pt seen by , initial plan to exchange current vazquez catheter to a new one changed per (plan for his urologist to do this after course
of antibiotics, pt is scheduled for cystoscopy on 08/18). Pt started on IV antibiotics and IV fluids. Pt understands that he needs to stay in the hospital for more treatment. Telemetry shows sinus rhythm with first degree AV block, RBBB and frequent
PVC's.
[2024-08-06 22:11] LABS: Glucose - Point of Care 128 mg/dl (70-99)
--- NOTE | 2024-08-07 00:04 | PTCARENOTE ---
pt talkative and articulate with conversation. pt with anxiety related to forgetting at times. pt noted to have some difficulty finding words at times. pt c/o headache. tylenol given. temp re taken at pt request=98.2 po. able to hold a full
conversation without difficulty about where he lives but gets increased anxiety when he can't remember a name.pt moving all extremities without difficulty. support provided frequently. pt assisted oob to chair for comfort.will observe.
[2024-08-07 05:06] VITALS: BP 138/70
[2024-08-07 05:28] LABS: Hematocrit 28.5 % (39.0-52.0); Hemoglobin 9.5 g/dL (13.0-18.0); Mean Corp Hgb Conc. 33.3 g/dL (33.0-37.0); Mean Corpuscular Hgb 30.6 pg (27.0-31.0); Mean Corpuscular Volume 91.9 fL (80.0-94.0); Mean Platelet Volume 10.4 fL (7.4-10.4); Platelet Count 154 10^3/uL (130-400); Red Cell Dist. Width 14.6 % (11.5-14.5); White Blood Cell Count 9.6 10^3/uL (4.8-10.8)
[2024-08-07] MEDS: SYNTHROID 88 MCG PO (05:38)
[2024-08-07 05:57] LABS: ALT (SGPT) 21 U/L (0-50); AST (SGOT) 48 U/L (17-59); Albumin 3.8 g/dl (3.5-5.0); Alkaline Phosphatase 82 U/L (38-126); Blood Urea Nitrogen 43 mg/dl (9-20); Calcium 9.5 mg/dl (8.4-10.2); Carbon Dioxide 25 mmol/L (22-30); Chloride 103 mmol/L (98-107); Estimated Creatinine Clearance 42 ml/min; Glucose 96 mg/dl (70-99); Magnesium 1.9 mg/dl (1.6-2.3); Potassium 4.9 mmol/L (3.5-5.1); Sodium 139 mmol/L (135-145); Total Bilirubin 0.4 mg/dl (0.2-1.3); Total Protein 6.5 g/dl (6.3-8.2); eGFR 49.25
--- NOTE | 2024-08-07 06:13 | PTCARENOTE ---
pt assisted oob to lounge chair. states he slept well. pleasant and cooperative this am. no acute distress.
[2024-08-07 07:22] LABS: Glucose - Point of Care 78 mg/dl (70-99)
[2024-08-07 07:25] VITALS: BMI 31.3
[2024-08-07 07:28] VITALS: BP 132/64
--- NOTE | 2024-08-07 07:28 | W.PN.HOSP.TC ---
Today's Communication/Plan
-
cont empiric abx
IVF completed
monitor renal function
follow urine culture speciation/sensitivities
Possible discharge tomorrow if remains stable/continues to improve
Assessment / Plan
Assessment / Plan
Physical Exam
General: No acute distress appears comfortable at this time
HEENT: NormoCephalic, Moist mucous membranes and Atraumatic
Respiratory: Clear
Cardiac: S1/S2 and Regular Rhythm; No Murmur or Rub
GI: Soft, Non Tender, Non Distended and Normal Bowel Sounds; No Organomegaly
Musculoskeletal: No Clubbing, No Cyanosis and No Edema
Skin: No Rash
Neuro: AOx3 conversant and coherent
83M atrial fibrillation status, CAD status post CABG x 4, iron deficiency anemia, hyperlipidemia, GERD, hypothyroidism, BPH, prostate cancer status post TURP with chronic Dumont catheter, MEGHAN, orthostatic hypotension, diabetes, history LLE DVT
presented to the hospital for elective PVI persistent atrial fibrillation. Procedure was successful and patient was planned for discharge, however he was noted to have word finding difficulty with concern for postprocedural delirium.
# Postprocedural delirium possibly secondary to catheter associated UTI vs residual anesthesia effects vs TIA
-Mental status since improved near baseline as per family
-UA suggestive of UTI though chronic Dumont
-Urine culture prelim pos for Gram neg bacilli and enterococcus species awaiting speciation
-continuing empiric Ceftriaxone
-CT head noted no acute abn's
-EEG reportedly normal as per Neuro
-Neuro eval appreciated
# Mild Acute kidney injury
-Creatinine 1.5 from 1.2
-improving
-gentle IVF completed
Persistent A-fib status post successful PVI
-Continue Eliquis
CAD status post CABG x 4
-Continue metoprolol
Chronic iron deficiency anemia
-H&H stable
-Continue to monitor
- cont Iron supplementation
Hyperlipidemia
-Continue statin
GERD
Hypothyroidism
-Continue levothyroxine
BPH
Prostate cancer status post radiation with history of TURP
History of recent UTI/sepsis with chronic Dumont catheter
Obstructive sleep apnea
Orthostatic hypotension
-Continue droxidopa
Type 2 diabetes
-Hold repaglinide, saxagliptin
-Insulin sliding scale
History of amatory dysfunction/falls
History of left lower DVT
Full code
DVT prophylaxis�Eliquis
Regular diet
I spent a total of 50 minutes with the patient or on the floor. More than 50% of this time involved counseling and coordination of care.
Anticipated Discharge: Within 24 hours
Subjective/Interval History
-
Date of Service: August 07, 2024
Seen and examined at bedside in no acute distress ambulating with walker without issues. Reports some word finding difficulty but otherwise feels well/significantly improved from day prior.
Objective Data
-
Labs:
Laboratory Results
08/07/24
05:15
WBC 9.6
Hgb 9.5 L
Hct 28.5 L
Plt Count 154
Sodium 139
Potassium 4.9
Chloride 103
Carbon Dioxide 25
BUN 43 H
Creatinine 1.4 H
Glucose 96
Calcium 9.5
Total Bilirubin 0.4
AST 48
ALT 21
Alkaline Phosphatase 82
Vital Signs:
Vital Signs
Temp Pulse Resp BP Pulse Ox
97.8 F 55 14 138/70 97
08/07/24 05:36 08/07/24 07:25 08/07/24 07:25 08/07/24 05:06 08/07/24 07:25
I&O
08/06/24 08/07/24 08/08/24
06:59 06:59 06:59
Intake Total 640 / 640
Output Total 1600 / 1600 3200 / 3200
Balance -960 / -960 -3200 / -3200
[2024-08-07] MEDS: PRANDIN 2 MG PO ×3 (08:56→17:12)
[2024-08-07] MEDS: ELIQUIS 5 MG PO ×2 (08:56→21:24)
[2024-08-07] MEDS: JANUVIA 100 MG PO (08:56)
[2024-08-07] MEDS: CRESTOR 10 MG PO (08:56)
[2024-08-07] MEDS: TOPROL XL 12.5 MG PO (08:56)
[2024-08-07] MEDS: PROTONIX 40 MG PO (08:56)
[2024-08-07] MEDS: NOVOLOG FLEXPEN-MODERATE RESISTANCE SC ×3 (08:56→17:23)
[2024-08-07] MEDS: FEOSOL 325 MG PO (08:58)
[2024-08-07] MEDS: MAGNESIUM OXIDE 500 MG PO (08:58)
[2024-08-07] MEDS: NSS 1000 IV (09:05)
[2024-08-07 11:39] LABS: Glucose - Point of Care 128 mg/dl (70-99)
[2024-08-07 11:53] VITALS: BP 113/64
[2024-08-07 16:42] VITALS: BP 100/62
[2024-08-07] MEDS: ROCEPHIN 1000 MG IV (17:06)
[2024-08-07] MEDS: STERILE WATER FOR INJECTION 10 ML IV (17:07)
[2024-08-07 17:12] LABS: Glucose - Point of Care 143 mg/dl (70-99)
[2024-08-07 18:22] VITALS: BP 95/65
--- NOTE | 2024-08-07 22:18 | PTCARENOTE ---
patient resting in bed comfortably. offers no complaints. SR with a first degree AVB and BBB- 60s-70s. bp stable. b/l groin sites intact-removed dressings/SAARH. + doppler pulses. patient eager to go home. vazquez care provided and explained to patient
importance of cleansing. call scherer within reach. calls appropriately.
[2024-08-07 22:26] VITALS: BP 118/52
[2024-08-07 22:29] LABS: Glucose - Point of Care 146 mg/dl (70-99)
[2024-08-08 05:21] VITALS: BP 135/62
[2024-08-08 05:41] LABS: Hematocrit 26.9 % (39.0-52.0); Hemoglobin 8.9 g/dL (13.0-18.0); Mean Corp Hgb Conc. 33.1 g/dL (33.0-37.0); Mean Corpuscular Hgb 30.3 pg (27.0-31.0); Mean Corpuscular Volume 91.5 fL (80.0-94.0); Mean Platelet Volume 10.4 fL (7.4-10.4); Platelet Count 154 10^3/uL (130-400); Red Blood Cell Count 2.94 10^6/uL (4.70-6.10); Red Cell Dist. Width 14.7 % (11.5-14.5); White Blood Cell Count 8.8 10^3/uL (4.8-10.8)
[2024-08-08 06:02] LABS: Blood Urea Nitrogen 40 mg/dl (9-20); Calcium 9.3 mg/dl (8.4-10.2); Carbon Dioxide 27 mmol/L (22-30); Chloride 103 mmol/L (98-107); Estimated Creatinine Clearance 41 ml/min; Glucose 188 mg/dl (70-99); Magnesium 1.9 mg/dl (1.6-2.3); Phosphorus 3.9 mg/dl (2.5-4.5); Potassium 4.6 mmol/L (3.5-5.1); Sodium 137 mmol/L (135-145); eGFR 49.25
[2024-08-08 07:05] VITALS: BP 127/54
[2024-08-08 07:08] LABS: Glucose - Point of Care 175 mg/dl (70-99)
[2024-08-08] MEDS: SYNTHROID 88 MCG PO (07:09)
--- NOTE | 2024-08-08 07:17 | W.PN.HOSP.TC ---
Today's Communication/Plan
-
Discharge
Assessment / Plan
Assessment / Plan
Physical Exam
General: No acute distress appears comfortable at this time
HEENT: NormoCephalic, Moist mucous membranes and Atraumatic
Respiratory: Clear
Cardiac: S1/S2 and Regular Rhythm; No Murmur or Rub
GI: Soft, Non Tender, Non Distended and Normal Bowel Sounds; No Organomegaly
Musculoskeletal: No Clubbing, No Cyanosis and No Edema
Skin: No Rash
Neuro: AOx3 conversant and coherent
83M atrial fibrillation status, CAD status post CABG x 4, iron deficiency anemia, hyperlipidemia, GERD, hypothyroidism, BPH, prostate cancer status post TURP with chronic Dumont catheter, MEGHAN, orthostatic hypotension, diabetes, history LLE DVT
presented to the hospital for elective PVI persistent atrial fibrillation. Procedure was successful and patient was planned for discharge, however he was noted to have word finding difficulty with concern for postprocedural delirium.
# Postprocedural delirium possible residual anesthesia effects vs TIA (less likely) vs UTI (ruled out)
-Mental status since improved, confusion resolved, likely baseline
-UA suggestive of UTI though chronic Dumont
-Urine culture prelim pos for Gram neg bacilli and enterococcus species awaiting speciation
-ID eval appreciated given overall lack of symptoms, likely polymicrobial bacteriuria benign colonization, no need for further abx
-CT head noted no acute abn's
-EEG reportedly normal as per Neuro
-Neuro eval appreciated
# Mild Acute kidney injury
-Creatinine 1.5 from 1.2
-improving
-gentle IVF completed
-outpt repeat BMP with primary recommended
Persistent A-fib status post successful PVI
-Continue Eliquis
CAD status post CABG x 4
-Continue metoprolol
Chronic iron deficiency anemia
-Downtrend H&H noted post-procedure but otherwise repeat H&H appears stable.
-No obvious signs of bleeding
-Outpt follow up H&H w/ pcp recommended
- cont Iron supplementation
Hyperlipidemia
-Continue statin
GERD
Hypothyroidism
-Continue levothyroxine
BPH
Prostate cancer status post radiation with history of TURP
History of recent UTI/sepsis with chronic Dumont catheter
Obstructive sleep apnea
Orthostatic hypotension
-Continue droxidopa
Type 2 diabetes
-Hold repaglinide, saxagliptin
-Insulin sliding scale
History of amatory dysfunction/falls
History of left lower DVT
Full code
DVT prophylaxis�Eliquis
Regular diet
Medically stable for discharge home with outpatient follow up recommendations
Total Time Preparing Discharge ___40____ minutes including examination of the patient, summary of the hospital stay, instructions for continuing care to all relevant caregivers; and preparation of discharge records, prescriptions, and referral
forms if necessary.
Anticipated Discharge: Today
Subjective/Interval History
-
Date of Service: August 08, 2024
Seen and examined at bedside in no acute distress. reports feeling well. Denies new acute issues. AOx3 conversant coherent and cheerful.
Objective Data
-
Labs:
Laboratory Results
08/08/24
05:33
WBC 8.8
Hgb 8.9 L
Hct 26.9 L
Plt Count 154
Sodium 137
Potassium 4.6
Chloride 103
Carbon Dioxide 27
BUN 40 H
Creatinine 1.4 H
Glucose 188 H
Calcium 9.3
Vital Signs:
Vital Signs
Temp Pulse Resp BP Pulse Ox
98.5 F 55 20 135/62 97
08/08/24 07:00 08/08/24 06:45 08/08/24 07:00 08/08/24 05:21 08/08/24 07:00
I&O
08/07/24 08/08/24 08/09/24
06:59 06:59 06:59
Intake Total 1010 / 1010
Output Total 3200 / 3200 2500 / 2500
Balance -3200 / -3200 -1490 / -1490
[2024-08-08] MEDS: PRANDIN 2 MG PO ×2 (07:34→11:58)
[2024-08-08] MEDS: FEOSOL 325 MG PO (07:35)
[2024-08-08] MEDS: CRESTOR 10 MG PO (07:35)
[2024-08-08] MEDS: JANUVIA 100 MG PO (07:35)
[2024-08-08] MEDS: ELIQUIS 5 MG PO (07:35)
[2024-08-08] MEDS: PROTONIX 40 MG PO (07:35)
[2024-08-08] MEDS: TOPROL XL 12.5 MG PO (07:35)
[2024-08-08] MEDS: MAGNESIUM OXIDE 500 MG PO (07:35)
[2024-08-08] MEDS: NOVOLOG FLEXPEN-MODERATE RESISTANCE 1 UNITS SC (07:36)
--- NOTE | 2024-08-08 08:15 | CON.ID ---
Consultation
-
Date/Time Consultation Requested: 08/08/2024 0730
Date/Time Consultation Performed: 08/08/2024 0820
Requesting Provider: Dr. Misti Ghosh
Performing Provider: Dr. Magalie Garcia
Reason for Consultation: Confusion, UTI vs colonization
Chief Complaint / Past History
Chief Complaint
Was confused
History of Present Illness
83-year-old male with history of diabetes mellitus, CAD, paroxysmal atrial fibrillation, BPH with chronic Vazquez who has been having frequent falls since summer and has been in and out of hospitalizations/rehab. He was recently admitted to [facility] rehab on July 16. On August 05, he underwent elective ablation. In the next morning, upon discharge, patient noted to have difficulty word finding. Head CT negative. UA reflex to urine culture obtained. He was
started on ceftriaxone. In the meantime his mental status improved to baseline quickly. Urine culture growing gram-negative esau and Enterococcus. Patient reports he used to self catheter for urine until recently when Vazquez placed. He follows
with a urologist and has an appointment next week. He denies suprapubic pain. No flank pain. No subjective fever or chills. He reports no history of frequent UTIs. He feels well. He wants to go home.
Past History
Additional Past Medical History:
DM2
orthostatic hypotension
CAD s/p CABG x 4
pAfib
hypothyroidism
Sleep apnea
Ambulatory dysfunction
BPH s/p TURP, vazquez
hx DVT
hx prostate CA s/p XRT
Bilateral SHANNAN
Allergy History:
erythromycin base Allergy (Unknown, Verified 08/05/24 07:47)
Unknown
Medications Reviewed: Yes
Current Antibiotics:
Ceftriaxone d3
Social History
Tobacco: Non-Smoker
Alcohol: None
Drug: None
Living: Penitentiary
Family History
Family History: Not Pertinent
Review of Systems
Review of Systems
General: Negative Fever, Chills or Change in Appetite
HEENT: Negative Lymphadenopathy, Stiff Neck, Sinus Problems, Headache or Pharyngitis
Cardiovascular: Negative Chest Pain or Dyspnea
Respiratory: Negative Dyspnea or Cough
Gasteroenterology: Other (no diarrhea); Negative Nausea or Vomiting
Genital / Urological: Negative Dysuria, Hematuria or Flank Pain
Endocrine: Negative Weakness
Skin / Hair / Nails: Negative Rash
Neurological: Negative Dizziness
All systems: All other systems were reviewed and were negative
Vital Signs
Temp Pulse Resp BP Pulse Ox
98.5 F 70 20 127/54 97
08/08/24 07:00 08/08/24 07:35 08/08/24 07:00 08/08/24 07:35 08/08/24 07:00
Physical Exam
Physical Exam
Constitutional: No Acute Distress and Comfortable
Eyes: No Conjunctival Hemorrhage and Sclera Anicteric
Cardiovascular: Regular Rate and S1/S2
Pulmonary: Clear
Gastrointestinal: Soft, Non Tender, Non Distended and Normal Bowel Sounds
Genito-Urinary: Vazquez and Clear Urine; Negative CVA Tenderness
Extremities: Negative Edema
Neurological: AO x 3; Negative Meningeal Signs
Lab / Diagnostic Study Results
08/08/24 05:33
08/08/24 05:33
Microbiology Results
Micro:
08/06/24 12:55 Urine Culture - Preliminary
Urine Gram negative bacilli
Enterococcus species
08/06/[address]: No evidence of acute intracranial abnormality.
Assessment / Plan
# Polymicrobial bacteruria
# BPH, chronic vazquez
- Expected with chronic vazquez
- Pt without urinary symptoms nor systemic signs of infection
- No need to treat colonized organisms.
-DC abx.
# Post-procedure delirium resolved.
# Conditions [employer]
DM2
orthostatic hypotension
CAD s/p CABG x 4
pAfib
hypothyroidism
Sleep apnea
Ambulatory dysfunction
BPH s/p TURP, vazquez
hx DVT
hx prostate CA s/p XRT
Bilateral SHANNAN
Care Review
Plan reviewed with: Physician (Dr. Ghosh)
[2024-08-08 10:29] LABS: Hematocrit 26.9 % (39.0-52.0); Hemoglobin 8.8 g/dL (13.0-18.0)
--- NOTE | 2024-08-08 10:43 | W.DCSUMMARY ---
Discharge Summary
Discharge Data
Date of Admission: 08/06/24
Date of Discharge: 08/08/24
-
Pending Results: Yes
Additional Pending Results:
official culture results
Discharge Plan
-
Patient Disposition: Home (Routine Discharge)
Discharge Diagnosis/Procedures: Afib post ablation
Postprocedure Delirium Suspected due to residual effects anesthesia
Polymicrobial Bacteriuria Benign Colonization Chronic Dumont
Anemia
Mild Acute Kidney injury vs Chronic Kidney Disease stage III
Condition: Fair
Diet: Low Cholesterol and Diabetic, Carb Controlled
Activity: As tolerated and With Walker
Driving Restrictions: No driving for 24 hours
Bathing Restrictions: None
Blood Work: Check CBC/BMP on Fri with primary care provider or cardiology
Stand Alone Forms: DC Instructions- Cath/EP Lab
Referrals:
Abelino Garrido DO [Family Provider] - in one week
Mary Giordano MD [Active] - in four to six weeks
Additional Discharge Medication Instructions: Stop Dofetilide
Prescriptions:
Continued
acetaminophen 325 mg Tablet
650 mg PO Q6H PRN (Reason: mild pain/fever)
repaglinide 2 mg Tablet
2 mg PO AC
levothyroxine 88 mcg Tablet
88 mcg PO DAILY
magnesium hydroxide [Milk of Magnesia] 400 mg/5 mL Suspension
30 ml PO DAILY PRN (Reason: constipation, no BM 48hrs)
ferrous sulfate 325 mg (65 mg iron) Tablet
325 mg PO DAILY
Fleet Enema 19-7 gram/118 mL Enema
118 ml [place] ONCE PRN (Reason: if no BM in 72 hours)
metoprolol succinate 25 mg Tablet Extended Release 24 Hr
12.5 mg PO DAILY
insulin lispro [Humalog U-100 Insulin] 100 unit/mL Solution
1 sliding scale dose SC DIRECTED
Rx Instructions:
150-199=2 units, 200-249=3 units, 250-299=5 units,300-349=7 units, 350-399= 8 units, >400 call MD
cholecalciferol (vitamin D3) 10 mcg (400 unit) Tablet
10 mcg PO DAILY
rosuvastatin 10 mg Tablet
10 mg PO DAILY
CertaVite Senior 0.4 mg-300 mcg- 250 mcg Tablet
1 tab PO DAILY
omeprazole 20 mg Tablet,Delayed Release (Dr/Ec)
20 mg PO DAILY
saxagliptin 2.5 mg Tablet
2.5 mg PO DAILY
apixaban 5 mg Tablet
5 mg PO BID
droxidopa 100 mg Capsule
100 mg PO TID
magnesium oxide 400 mg magnesium Tablet
400 mg PO DAILY
Skin Protectant
1 applic topical PRN PRN (Reason: to bony prominences as needed)
Skin Protectant
1 applic topical Q8H
Discontinued
dofetilide 125 mcg Capsule
125 mcg PO BID
Discharge Orders:
Discharge Patient (As Directed); Ordered 08/08/24
Ordered By: Misti Ghosh
Care Plan Goals
Care Plan Goals:
Problem: Readiness for enhanced knowledge related to diagnosis and treatment plan
Goal: Understand your diagnosis and treatment plan needs, including medications if applicable.
Instructions: Know your diagnosis, underlying causes and treatment plan options, including medications if applicable. Consult with your health care team to learn about your diagnosis and treatment plan, including medications if applicable.
Discharge Date and Time
Discharge Date/Time: 08/08/24 15:19
Print Language: PERUVIAN
[2024-08-08 11:51] VITALS: BP 98/67
[2024-08-08 11:55] LABS: Glucose - Point of Care 136 mg/dl (70-99)
[2024-08-08 11:56] VITALS: BP 98/67
[2024-08-08] MEDS: NOVOLOG FLEXPEN-MODERATE RESISTANCE SC (11:58)
--- NOTE | 2024-08-09 07:50 | EEG.RPT ---
Electroencephalogram Report
Recording
Date of EE08/09/24
Type of EEG: Routine
Length of EEG recordin minutes
Done with Video Recording: Yes
Patient Status: Inpatient
Recording Conditions: Awake, Drowsy and Asleep
Hyperventilation Performed: No
Photic Stimulation Performed: Yes
Report
LESS THAN 1 HOUR EEG REPORT
LESS THAN 1 HOUR EEG INTERPRETATION:
Likely unremarkable EEG for age
CLINICAL CORRELATION:
Although normative values not been established for a person of this advanced age, the patient�s symmetry of the background suggests that this study was unremarkable.
A normal EEG does not rule out a diagnosis of epilepsy. If clinical suspicion for seizure persists, a prolonged recording may be warranted.
Clinical correlation is advised.
METHODS:
A 21 channel digitized electroencephalogram (EEG) was performed using the 10/20 international system of electrode placement and one-lead of ECG recorded. The L[employer] quantitative review system was utilized.
ELECTROENCEPHALOGRAPHER IMPRESSION(S):
Quality of study
Good
Background
There was an unremarkable anterior-posterior voltage gradient of alpha frequency.
With eye opening the background activity changed to a low voltage mixture of frequencies.
There were no significant asymmetries of background activity noted.
Sleep
Drowsiness present
Stage 2 sleep recorded
Photic Stimulation
Driving symmetrically at some intermediate flash frequencies
ECG
Normal sinus rhythm
== END 2024-08-08 15:19 | disposition home or self-care (01) ==
LOC: CATH 06:02
PROVIDERS: Nurse Practitioner Adult Health; ATTENDING PHYSICIAN Internal Medicine; CONSULT PHYSICIAN Internal Medicine Cardiovascular Disease; CONSULT PHYSICIAN Internal Medicine Infectious Disease; CONSULT PHYSICIAN Psychiatry & Neurology Neurology; FAMILY PHYSICIAN Family Medicine Adult Medicine; OTHER PHYSICIAN Internal Medicine Interventional Cardiology
DX: I48.19 Other persistent atrial fibrillation (principal); R47.01 Aphasia; I25.2 Old myocardial infarction; K21.9 Gastro-esophageal reflux disease without esophagitis; E78.5 Hyperlipidemia, unspecified; I50.22 Chronic systolic (congestive) heart failure; Z96.643 Presence of artificial hip joint, bilateral; Z95.1 Presence of aortocoronary bypass graft; R00.1 Bradycardia, unspecified; I25.10 Atherosclerotic heart disease of native coronary artery without angina pectoris; Z88.1 Allergy status to other antibiotic agents; I95.1 Orthostatic hypotension; E11.9 Type 2 diabetes mellitus without complications; N40.0 Benign prostatic hyperplasia without lower urinary tract symptoms; G47.33 Obstructive sleep apnea (adult) (pediatric); E03.9 Hypothyroidism, unspecified; Z85.46 Personal history of malignant neoplasm of prostate; Z86.718 Personal history of other venous thrombosis and embolism; Z87.440 Personal history of urinary (tract) infections; Z79.01 Long term (current) use of anticoagulants; Z79.4 Long term (current) use of insulin; Z79.890 Hormone replacement therapy; Z79.899 Other long term (current) drug therapy
CPT/HCPCS: C1894; C1759; C1732 ×2; C1769; C1730; C1892; 70450; 80048; 80053; 81003; 81015; 82962; 83036; 83735; 84100; 85014; 85018; 85027; 85347; 86900; 86901; 87077; 87086; 87186; 93005; 93656; 95816; C1733; C1766

== ENCOUNTER → 2024-10-12 16:48 | Day surgery (SDC) | payer BC, MEDICARE, SELFPAY ==
[2024-08-02 09:08] LABS: % Basophils 0.3 % (0-2); % Eosinophils 2.1 % (0-6); % Immature Granulocytes 0.5 % (0-0.5); % Lymphocytes 23.5 % (20.5-51.1); % Monocytes 7.2 % (1.7-9.3); % Neutrophils 66.4 % (42.2-75.2); Absolute Eosinophils 0.2 10^3/uL (0-0.7); Absolute Immature Granulocytes 0.1 10^3/uL (0-0.05); Absolute Lymphocytes 2.3 10^3/uL (1.2-3.4); Absolute Monocytes 0.7 10^3/uL (0.1-0.6); Absolute Neutrophils 6.6 10^3/uL (1.4-6.5); Hematocrit 34.4 % (39.0-52.0); Hemoglobin 11.3 g/dL (13.0-18.0); Mean Corp Hgb Conc. 32.8 g/dL (33.0-37.0); Mean Corpuscular Hgb 30.7 pg (27.0-31.0); Mean Corpuscular Volume 93.5 fL (80.0-94.0); Mean Platelet Volume 10.9 fL (7.4-10.4); Nucleated Red Blood Cells % 0 % (-); Platelet Count 213 10^3/uL (130-400); Red Blood Cell Count 3.68 10^6/uL (4.70-6.10); Red Cell Dist. Width 14.3 % (11.5-14.5); White Blood Cell Count 9.9 10^3/uL (4.8-10.8)
[2024-08-02 09:23] LABS: INR 1.16; PT 14.6 Sec (11.4-14.6)
[2024-08-02 09:31] LABS: ALT (SGPT) 16 U/L (0-50); AST (SGOT) 31 U/L (17-59); Albumin 4.3 g/dl (3.5-5.0); Alkaline Phosphatase 113 U/L (38-126); Blood Urea Nitrogen 35 mg/dl (9-20); Calcium 10.1 mg/dl (8.4-10.2); Carbon Dioxide 27 mmol/L (22-30); Chloride 101 mmol/L (98-107); Glucose 178 mg/dl (70-99); Potassium 4.8 mmol/L (3.5-5.1); Sodium 140 mmol/L (135-145); Total Bilirubin 0.6 mg/dl (0.2-1.3); Total Protein 7.4 g/dl (6.3-8.2); eGFR 59.26
== END ==
LOC: SDSPAT 16:48
PROVIDERS: ATTENDING PHYSICIAN Internal Medicine Cardiovascular Disease; FAMILY PHYSICIAN Family Medicine Adult Medicine; OTHER PHYSICIAN Internal Medicine Interventional Cardiology
DX: Z01.810 Encounter for preprocedural cardiovascular examination (principal); Z01.812 Encounter for preprocedural laboratory examination
CPT/HCPCS: 75572; 36415; 80053; 83735; 85025; 85610; 86850; 86900; 86901; 93005; Q9967

== ENCOUNTER 2025-02-15 06:05 | Inpatient (IN) | payer BC, MEDICARE, SELFPAY ==
[2025-02-04 11:54] VITALS: BMI 32.5
[2025-02-04 12:58] LABS: % Basophils 0.3 % (0-2); % Eosinophils 1.6 % (0-6); % Immature Granulocytes 0.3 % (0-0.5); % Lymphocytes 17.6 % (20.5-51.1); % Neutrophils 73.2 % (42.2-75.2); Absolute Eosinophils 0.2 10^3/uL (0-0.7); Absolute Lymphocytes 1.7 10^3/uL (1.2-3.4); Absolute Monocytes 0.7 10^3/uL (0.1-0.6); Absolute Neutrophils 6.9 10^3/uL (1.4-6.5); Hematocrit 36.1 % (39.0-52.0); Hemoglobin 11.3 g/dL (13.0-18.0); Mean Corp Hgb Conc. 31.3 g/dL (33.0-37.0); Mean Corpuscular Hgb 29.3 pg (27.0-31.0); Mean Corpuscular Volume 93.5 fL (80.0-94.0); Mean Platelet Volume 11.3 fL (7.4-10.4); Nucleated Red Blood Cells % 0 % (-); Platelet Count 167 10^3/uL (130-400); Red Blood Cell Count 3.86 10^6/uL (4.70-6.10); Red Cell Dist. Width 14.9 % (11.5-14.5); White Blood Cell Count 9.4 10^3/uL (4.8-10.8)
[2025-02-04 13:03] LABS: INR 1.16; PT 15.1 Sec (11.4-14.6)
[2025-02-04 13:12] LABS: ALT (SGPT) 24 U/L (0-50); AST (SGOT) 24 U/L (17-59); Alkaline Phosphatase 89 U/L (38-126); Blood Urea Nitrogen 40 mg/dl (9-20); Calcium 9.7 mg/dl (8.4-10.2); Carbon Dioxide 28 mmol/L (22-30); Chloride 104 mmol/L (98-107); Estimated Creatinine Clearance 39 ml/min; Glucose 67 mg/dl (70-99); Potassium 4.6 mmol/L (3.5-5.1); Sodium 141 mmol/L (135-145); Total Bilirubin 0.4 mg/dl (0.2-1.3); Total Protein 6.7 g/dl (6.3-8.2); eGFR 48.95
[2025-02-15] VITALS (23 sets, daily range): BP systolic 96–148; BP diastolic 61–92; BMI 32.5
[2025-02-15 07:07] LABS: Glucose - Point of Care 115 mg/dl (70-99)
--- NOTE | 2025-02-15 07:19 | W.PN.UPDATE ---
Update Note
Progress Note Update
Reviewed Mr. Brewer with the heart team in the preWatchman SDM meeting. Discussed a 21/24mm device will confirm with intraop imaging. Will start Eliquis 2.5 mg PO BID x 3 months until follow up ERIKA.
[2025-02-15 08:52] LABS: ACT-LR - POC 371 Seconds (116-155)
[2025-02-15 09:27] LABS: ACT-LR - POC 269 Seconds (116-155)
[2025-02-15 09:35] LABS: Glucose - Point of Care 112 mg/dl (70-99)
--- NOTE | 2025-02-15 09:35 | ITS.CL.PN ---
Patternmaker Metal Bench - Procedure Note
Procedure
Procedure Note:
WATCHMAN LEFT ATRIAL APPENDAGE OCCLUSION REPORT
Date of Procedure: 02/15/2025
Referring: Dr. Wen Giordano MD
Indication: Atrial fibrillation with high bleeding risk and high stroke risk
Operators: Colby Taveras MD, PhD (interventional cardiology); Dr. Bola Banuelos MD (electrophysiology); Dr. Bravo Beverly MD (cardiac imaging)
Anesthesia: general anesthesia provided by the anesthesia staff
PROCEDURE: left atrial appendage occlusion with a 24 mm Watchman FLX
ACCESS: 14F right common femoral vein (closure: figure of eight stitch)
HEMODYNAMIC DATA
LA 12 mmHg
PROCEDURE NARRATIVE:
The patient was intubated and sedated by anesthesiology and then prepped and draped in standard sterile fashion. A ERIKA probe was placed by cardiology and imaging performed demonstrating no left atrial appendage thrombus and no pericardial effusion.
Under ultrasound guidance, the right femoral vein was accessed by Dr. Blake Taveras with an 8F sheath placed. Heparin was administered to achieve ACT>300.
The 8F sheath was exchanged over a [employer] RF wire for the Watchman double curve sheath which was advanced to the SVC. The Watchman sheath was then pulled back under fluoroscopic and echo guidance until an appropriate mid height and posterior
position on the septum was achieved. During brief RF application, the wire was advanced through the interatrial septum into the left atrium. The wire was placed in the left upper pulmonary vein as confirmed by fluoroscopy and ERIKA. The dilator and
sheath easily tracked across the septum allowing placement of the sheath in the left atrium. Left atrial pressure was measured at 12 mmHg. The patient was the successfully cardioverted into normal sinus rhythm.
A 5F pigtail catheter was advanced through the sheath and placed in the left atrial appendage, and an appendage gram was performed demonstrating anatomy suitable for a 24 mm Watchman FLX device. The device was prepped on the back table, the pigtail
catheter removed, and the device delivered via the sheath to the left atrial appendage by Dr. Bola Banuelos. The device was deployed slowly under continuous fluoroscopic and ERIKA visualization. The device was noted to be unstable on tug test, which
could not be corrected despite multiple deployments. This was felt to be due to the device being oversized, preventing ideal depth of deployment. The device was thus exchanged for a 20 mm device, that was delivered this time with better depth and
stable tug test, but <10% compression. It was felt that using a TruSteer sheath would allow delivery of the 24 mm device with angulation to allow sufficiency depth of delivery. Over a J-wire, the standard Watchman sheath was exchanged for the
TruSteer sheath. The 24 mm device was re-prepped and delivered this time utilizing both counterclockwise torque to achieve depth and pre-deployment flexion to maintain ideal coaxial device deployment. After deployment, ERIKA imaging was performed to
assess PASS criteria. The device demonstrated excellent positioning, anchor stability on tug test, appropriate sizing with 12-25% compression, and appropriate seal with no leak at 0, 45, 90, or 135 degrees. Given PASS criteria were met, the device
was then released.
The delivery system retracted back into the sheath and removed from the body. The sheath was retracted into the right atrium with ERIKA demonstrating no significant R-L shunt or pericardial effusion. The sheath was removed and the venotomy closed with
[id number]-[id number] knot. Protamine 40 mg was given. The patient was extubated and tolerated the procedure well.
RADIATION: dose 236 mGy; DAP 25 Gy*cm2; fluoroscopy time 17 min
CONCLUSIONS
1. transseptal puncture with ERIKA guidance
2. successful deployment of a 24 mm Watchman FLX device under fluoroscopic and ERIKA guidance using TruSteer sheath
RECOMMENDATIONS:
1. anticoagulation with Eilquis 2.5 mg BID for 3 months
2. repeat ERIKA in 3 months
Copy to: Dr. Wen Giordano MD (car audio installer); Abelino Garrido DO (PCP)
Signed: Colby Taveras MD, PhD
--- NOTE | 2025-02-15 09:37 | ITS.CL.PN ---
Turbine Measurements Engineer - Procedure Note
Procedure
Procedure Note:
Watchman implantation report
Date:
February 15, 2025
Referring: Dr. PO Giordano
History: History of coronary artery bypass surgery, history of PVI plus left atrial posterior wall isolation with pulse field ablation, multiple traumatic falls and anemia who presents for watchman implantation. CT scan demonstrated a 16 to 19 mm
ostium with a chicken wing distal appendage.
Watchman implant: Banuelos
Transseptal cylinder die machine operator: Darcy
Procedure note:
After informed consent and patient safety timeout the patient was sedated and placed under general anesthesia by the anesthesiology service. Dr. Beverly performed the ERIKA which demonstrated normal ejection fraction and no pericardial effusion at
baseline or post procedure. Dr. Taveras utilized ultrasound guidance for [address] [place] short sheath over a wire. ERIKA guidance for transseptal as the pigtail wire and then the standard watchman sheath was brought up into the SVC and down
into the interatrial fossa. The radiofrequency wire access the left atrium and the sheath was brought into the left atrium. Pigtail demonstrated a chicken wing morphology with short working depth and a 16 to 18 mm ostium. After appendage
imaging-delivered a 24 mm device with a standard sheath but the device would come back with tug test and there was a prominent mitral shoulder. Then utilizing a 20 mm device the device was delivered more distally meeting Pass criteria but
compression was approximately 10 to 12% for the circumference of the device and as such we elected to utilize the true steer sheath for device delivery.
The 20 mm device was withdrawn and over the pigtail wire of the true steer steerable watchman sheath was exchanged for the standard sheath and pigtail imaging once again demonstrated sigmoid morphology with an 18 mm ostium. Utilizing the steering
mechanism on the device a 24 mm device was at first counterclockwise torque delivered with forward pressure to the most distal portion of the left atrial appendage and then mid deployment clockwise steer was delivered to tuck that 24 mm device into
the mitral side which markedly reduced the mitral shoulder. Compression was also improved with 12 to 25% compression and appendage imaging demonstrated a proximal seal without leak or lack of coverage of trabeculated tissue. ERIKA imaging
demonstrated en face deployment with compression as above and a lack of mitral shoulder in the 45, 98 degree, and 135 degree images. There was difficulty in imaging at 0 degree.
As the 24 mm device met Pass criteria the device was deployed and sheath and catheters were removed to the right atrium. ACT was given to maintain an ACT between 300 to 400 seconds. No pericardial fusion post procedure. Svdybf-mz-jjdhk suture to
the right femoral vein and the sheath was removed through the lxndjg-xi-yuoaq suture. Hemostasis was adequate and 40 mg of protamine was given. The patient was cardioverted immediately after transseptal with 1 200 J synchronized biphasic shock to
sinus rhythm as he presented in atypical atrial flutter. Patient also had labile blood pressures throughout requiring pressor support but also concomitant hypertension as well.
Impression:
24 mm device delivery with a true steer sheath as above.
Device meeting Pass criteria prior to delivery.
Cardioversion to sinus rhythm with 1 200 J synchronized biphasic shock
Plan:
Watch overnight. Lower Eliquis to 2.5 mg twice daily x 3 months and ERIKA at 3 months. Reinitiate dofetilide at 125 mics twice daily
[2025-02-15 12:11] LABS: Glucose - Point of Care 184 mg/dl (70-99)
[2025-02-15] MEDS: TIKOSYN 125 MCG PO ×2 (12:21→22:05)
--- NOTE | 2025-02-15 12:55 | PTCARENOTE ---
Rec'd pt from analytical lab analyst. R groin w/ fig 8 sutures. Dsg is c/d/i. No bleeding/hematoma noted. Educated pt on activity restrictions and pt verbalizes understanding. Oriented pt to room. and daughter at bedside. Currently in bed; call niesha w/in
reach.
[2025-02-15 14:21] LABS: Glucose - Point of Care 192 mg/dl (70-99)
[2025-02-15] MEDS: NOVOLOG FLEXPEN-MODERATE RESISTANCE 1 UNITS SC (14:44)
[2025-02-15] MEDS: PRANDIN 2 MG PO ×2 (14:44→16:00)
--- NOTE | 2025-02-15 14:59 | PTCARENOTE ---
Tikosyn administered as ordered and 2 hour post EKG obtained. QTc 507. Brea Juwan [employer]LE[employer]OR aware and ok to administer 2200 dose.
--- NOTE | 2025-02-15 15:34 | CM ---
CM following for DC planning needs.
Met w/ patient at bedside to complete initial assessment.
Pt. resides w/ spouse in a private, 2 st home + basement, 1 [facility]. Functionally, patient is indep. w/ ADLs, mobility with use of a RW.
Pt. has RX plan and uses [facility] for prescription needs.
DC plan is for home, no antic. needs.
Will follow.
[2025-02-15 15:56] LABS: Glucose - Point of Care 276 mg/dl (70-99)
[2025-02-15] MEDS: DROXIDOPA 100 MG PO ×2 (15:56→22:04)
[2025-02-15] MEDS: NOVOLOG FLEXPEN-MODERATE RESISTANCE 5 UNITS SC (15:56)
[2025-02-15] MEDS: TOPROL XL 25 MG PO (17:48)
[2025-02-15] MEDS: CRESTOR 10 MG PO (17:48)
[2025-02-15] MEDS: ELIQUIS 2.5 MG PO (20:34)
[2025-02-15] MEDS: ProAmatine 10 MG PO (20:34)
[2025-02-15] MEDS: PROTONIX 40 MG PO (20:34)
[2025-02-15 21:51] LABS: Glucose - Point of Care 199 mg/dl (70-99)
--- NOTE | 2025-02-15 23:56 | PTCARENOTE ---
Assumed care of the pt @ 1900. Pt is AAOx3 forgetful at times sitting up in recliner SR on the monitor VSS Rt groin dressing c/d/i. suprapubic tube draining yellow. Call scherer within reach.
[2025-02-16 02:30] VITALS: BP 128/77
[2025-02-16 03:37] LABS: Hematocrit 30.9 % (39.0-52.0); Hemoglobin 10.1 g/dL (13.0-18.0); Mean Corp Hgb Conc. 32.7 g/dL (33.0-37.0); Mean Corpuscular Hgb 29.5 pg (27.0-31.0); Mean Corpuscular Volume 90.4 fL (80.0-94.0); Mean Platelet Volume 11.3 fL (7.4-10.4); Platelet Count 180 10^3/uL (130-400); Red Blood Cell Count 3.42 10^6/uL (4.70-6.10); Red Cell Dist. Width 14.7 % (11.5-14.5); White Blood Cell Count 10.7 10^3/uL (4.8-10.8)
[2025-02-16 04:02] LABS: Blood Urea Nitrogen 34 mg/dl (9-20); Calcium 9.6 mg/dl (8.4-10.2); Carbon Dioxide 26 mmol/L (22-30); Chloride 102 mmol/L (98-107); Estimated Creatinine Clearance 42 ml/min; Glucose 131 mg/dl (70-99); Magnesium 1.9 mg/dl (1.6-2.3); Potassium 4.9 mmol/L (3.5-5.1); Sodium 138 mmol/L (135-145)
[2025-02-16] MEDS: SYNTHROID 88 MCG PO (05:01)
[2025-02-16 06:58] VITALS: BP 133/66
--- NOTE | 2025-02-16 07:23 | W.PN.CARDCBS ---
Addendum entered and electronically signed by Bola Banuelos MD 02/16/25 09:22:
Patient seen and examined
Agree with CHANGE LEAD note and assessment
CHANGE LEAD plan
Exam:
JVP 6
Heart regular
ECGs were reviewed with stable QTc and he has been on dofetilide in the past
Lungs clear to station bilaterally
Suprapubic Dumont is noted
Nonfocal neurologically
Alert and orient x 3
Impression:
Paroxysmal atrial fibrillation prior PVI
Orthostasis
Ambulatory dysfunction with frequent falls
post 24mm ROXANNE Watchman device implant and Cardioversion 02/15/25
CAD s/p CABG x4, DOWNEY-LAD, SVG RPA, sequential SVG, ramus OM.
Hyperlipidemia.
CKD 3a
Remote tobacco abuse.
Hypothyroidism.
Osteoarthritis.
GERD.
chronic Anemia.
BPH.
Neurogenic bladder.
Prostate cancer, <5 years, radiation.
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
Obstructive sleep apnea, noncompliant with device.
Plan:
post watchman and CV
He is stable overnight
remains in SR 1deg AVB, RBBB
Restarted dofetilide 125mcg, QTc this am 510, will check after this am dose but overall has been stable and he has tolerated in the past
Decrease Eliquis to 2.5mg bid
continue metoprolol
f/u ERIKA 3 mo
f/u Dr. Giordano 1 mo
home later today if QTc stable on next EKG
Original Note:
Today's Communication / Plan
-
Post Watchman and Cardioversion
Decrease Eliquis to 2.5mg bid
Reinitiated dofetilide monitor QTc
F/u ERIKA in 3 mo
home later today
Impression / Plan
-
PCP: Abelino Garrido MD
CDY: Dr. Giordano
Impression:
Paroxysmal atrial fibrillation prior PVI
Orthostasis
Ambulatory dysfunction with frequent falls
post 24mm ROXANNE Watchman device implant and Cardioversion 02/15/25
CAD s/p CABG x4, DOWNEY-LAD, SVG RPA, sequential SVG, ramus OM.
Hyperlipidemia.
CKD 3a
Remote tobacco abuse.
Hypothyroidism.
Osteoarthritis.
GERD.
chronic Anemia.
BPH.
Neurogenic bladder.
Prostate cancer, <5 years, radiation.
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
Obstructive sleep apnea, noncompliant with device.
Plan:
post watchman and CV
groin stable
remains in SR 1deg AVB, RBBB
Restarted dofetilide 125mcg, QTc this am 510, will check after this am dose
Decrease Eliquis to 2.5mg bid
continue metoprolol
Activity restrictions reviewed
f/u ERIKA 3 mo
f/u Dr. Giordano 1 mo
home later today if QTc stable on next EKG
Progress Note - Rhinestone Setter
Subjective
Date of Service: February 16, 2025
denies cp, sob
Objective
Labs:
02/16/25 02:27
02/16/25 02:27
Labs
Hgb 10.1 g/dL (13.0-18.0) L 02/16/25 02:27
Hct 30.9 % (39.0-52.0) L 02/16/25 02:27
Plt Count 180 10^3/uL (130-400) 02/16/25 02:27
PT 15.1 Sec (11.4-14.6) H 02/04/25 12:06
INR 1.16 02/04/25 12:06
Sodium 138 mmol/L (135-145) 02/16/25 02:27
Potassium 4.9 mmol/L (3.5-5.1) 02/16/25 02:27
BUN 34 mg/dl (9-20) H 02/16/25 02:27
Creatinine 1.3 mg/dL (0.7-1.3) 02/16/25 02:27
Glucose 131 mg/dl (70-99) H 02/16/25 02:27
Vital Signs and I&O:
Vital Signs
Temp Pulse Resp BP Pulse Ox
97.9 F 78 18 133/66 99
02/16/25 06:59 02/16/25 07:15 02/16/25 06:59 02/16/25 06:58 02/16/25 06:59
Vital Signs
Temp Pulse Resp BP Pulse Ox
97.9 F 78 18 133/66 99
02/16/25 06:59 02/16/25 07:15 02/16/25 06:59 02/16/25 06:58 02/16/25 06:59
Intake & Output
02/14/25 02/15/25 02/16/25 02/17/25
06:59 06:59 06:59 06:59
Intake Total 300 / 300
Output Total 900 / 900
Balance -600 / -600
Physical Exam
Physical Exam
NAD, AOx3, left ocular ecchymosis
S1, S2, RRR
CTAB, non labored, no wheeze
SNTND bsx4
R fem site c/d/i, soft, no HT
[2025-02-16 08:26] LABS: Glucose - Point of Care 205 mg/dl (70-99)
[2025-02-16] MEDS: JANUVIA 50 MG PO (08:27)
[2025-02-16] MEDS: DROXIDOPA 100 MG PO (08:27)
[2025-02-16] MEDS: LANTUS 0.06 UNITS SC (08:27)
[2025-02-16] MEDS: NOVOLOG FLEXPEN-MODERATE RESISTANCE 3 UNITS SC (08:27)
[2025-02-16] MEDS: COLACE 100 MG PO (08:27)
[2025-02-16] MEDS: ProAmatine 10 MG PO (08:27)
[2025-02-16] MEDS: PRANDIN 2 MG PO (08:27)
[2025-02-16] MEDS: TIKOSYN 125 MCG PO (08:27)
[2025-02-16] MEDS: ELIQUIS 2.5 MG PO (08:27)
[2025-02-16] MEDS: PROTONIX 40 MG PO (08:27)
[2025-02-16 10:13] LABS: Glycohemoglobin (HgbA1c) 6.8 % (4.0-5.6)
--- NOTE | 2025-02-16 10:34 | W.DS.TRANS ---
DC Summary - Movie Editor
-
Discharge Instructions:
Discharge Diagnosis/Procedures AFib, s/p watchman device implant
Diet Low Cholesterol,Diabetic, Carb Controlled
Driving Restrictions No driving for 24 hours
Others Tests Follow up ERIKA has been scheduled for you at
[facility] with Dr. Buck on 05/17/2025
. You will receive a call the day prior with
arrival time. Pre-admission testing is scheduled
for 05/09/2025 at 11:20am at [facility]
in the [facility].
Instructions:
Stand-Alone Forms: DC Instructions- Cath/EP Lab
Changes to Home Medications: Yes
Discharge Medications:
DC Medications w/original date entered in Apprema
droxidopa 100 mg capsule 100 mg PO TID 07/23/24
levothyroxine 88 mcg tablet 88 mcg PO DAILY 07/23/24
metoprolol succinate 25 mg tablet,extended release 24 hr 25 mg PO QPM 07/23/24
qywgwkpj-nfc-wlzkx acid 0.4 mg-lycopene 300 mcg-lutein 250 mcg tablet (CertaVite Senior) 1 tab PO DAILY 07/23/24
omeprazole 20 mg tablet,delayed release 20 mg PO BID 07/23/24
repaglinide 2 mg tablet 2 mg PO TIDWMEAL 07/23/24
rosuvastatin 10 mg tablet 10 mg PO QPM 07/23/24
Aranesp (in polysorbate) 1 dose SC PRN PRN Hgb <13 02/02/25
Probiotic 1 cap PO DAILY 02/02/25
ascorbic acid (vitamin C) 1,000 mg tablet (Vitamin C) 1 g PO DAILY 02/02/25
cholecalciferol (vitamin D3) 25 mcg (1,000 unit) tablet (Vitamin D3) 50 mcg PO QPM 02/02/25
clotrimazole 1 % topical cream 1 applic topical PRN PRN Buttock Rash 02/02/25
docusate sodium 100 mg tablet 100 mg PO DAILY 02/02/25
insulin degludec 100 unit/mL (3 mL) subcutaneous pen (Tresiba FlexTouch U-100 insulin) 6 unit SC DAILY 02/02/25
midodrine 10 mg tablet 10 mg PO BID 02/02/25
sitagliptin phosphate 50 mg tablet (Januvia) 50 mg PO DAILY 02/02/25
apixaban 2.5 mg tablet (Eliquis) 2.5 mg PO BID #60 tabs 02/16/25
dofetilide 125 mcg capsule 125 mcg PO Q12H #60 caps 02/16/25
Home Medication Changes
decrease eliquis to 2.5mg bid, restarted dofetilide
Pending Results: No
[2025-02-16 10:36] VITALS: BP 129/70
--- NOTE | 2025-02-16 11:53 | CM ---
CM following for DC planning needs.
Met w/ patient at bedside.
Plan is for DC to home today w/ family. Pt. is open to [facility] for home nursing. I sent referral back to them for resumption of care.
Plan is for home w/ [facility] VN.
[2025-02-16] MEDS: NOVOLOG FLEXPEN-MODERATE RESISTANCE SC (12:47)
[2025-02-16] MEDS: PRANDIN PO (12:48)
--- NOTE | 2025-02-16 13:02 | PTCARENOTE ---
IV and tele removed. Discharge instructions reviewed w/ pt and spouse and verbalizes understanding. Belongings collected and sent home w/ pt. Escorted via WC and staff assist to home.
== END 2025-02-16 13:03 | disposition home health service (06) | DRG 274 ==
LOC: IVU 06:05
PROVIDERS: Internal Medicine Cardiovascular Disease; Nurse Practitioner; ADMITTING PHYSICIAN Internal Medicine Cardiovascular Disease; FAMILY PHYSICIAN Family Medicine Adult Medicine
PROC: 02L73DK Occlusion of Left Atrial Appendage with Intraluminal Device, Percutaneous Approach (ICD-10-PCS; 2025-02-15)
PROC: B24BZZ4 Ultrasonography of Heart with Aorta, Transesophageal (ICD-10-PCS; 2025-02-15)
PROC: 5A2204Z Restoration of Cardiac Rhythm, Single (ICD-10-PCS; 2025-02-15)
DX: I48.0 Paroxysmal atrial fibrillation (principal); I25.10 Atherosclerotic heart disease of native coronary artery without angina pectoris; D64.9 Anemia, unspecified; E78.5 Hyperlipidemia, unspecified; N18.31 Chronic kidney disease, stage 3a; G47.33 Obstructive sleep apnea (adult) (pediatric); E11.22 Type 2 diabetes mellitus with diabetic chronic kidney disease; E11.40 Type 2 diabetes mellitus with diabetic neuropathy, unspecified; K21.9 Gastro-esophageal reflux disease without esophagitis; E03.9 Hypothyroidism, unspecified; M19.90 Unspecified osteoarthritis, unspecified site; R29.6 Repeated falls; N40.0 Benign prostatic hyperplasia without lower urinary tract symptoms; I44.0 Atrioventricular block, first degree; I45.10 Unspecified right bundle-branch block; N31.9 Neuromuscular dysfunction of bladder, unspecified; Z96.643 Presence of artificial hip joint, bilateral; Z92.3 Personal history of irradiation; Z95.1 Presence of aortocoronary bypass graft; Z85.46 Personal history of malignant neoplasm of prostate; Z90.79 Acquired absence of other genital organ(s); Z79.890 Hormone replacement therapy; Z79.84 Long term (current) use of oral hypoglycemic drugs; Z79.01 Long term (current) use of anticoagulants; Z79.4 Long term (current) use of insulin; Z88.1 Allergy status to other antibiotic agents; Z88.8 Allergy status to other drugs, medicaments and biological substances; Z91.199 Patient's noncompliance with other medical treatment and regimen due to unspecified reason; Z87.891 Personal history of nicotine dependence
CPT/HCPCS: 33340; 36415; 80048; 80053; 82962; 83036; 83735; 85025; 85027; 85347; 85610; 86850; 86900; 86901; 87070; 87147; 92960; 93005; 93355; C1894; Q9967

== ENCOUNTER 2025-05-17 08:42 | Day surgery (SDC) | payer BC, MEDICARE, SELFPAY ==
[2025-05-09 11:53] VITALS: BMI 34.1
== END 2025-05-17 11:00 | disposition home or self-care (01) ==
LOC: CATH 08:42
PROVIDERS: ATTENDING PHYSICIAN Internal Medicine Cardiovascular Disease; FAMILY PHYSICIAN Family Medicine Adult Medicine; OTHER PHYSICIAN Internal Medicine Interventional Cardiology
DX: Z45.09 Encounter for adjustment and management of other cardiac device (principal); Z95.818 Presence of other cardiac implants and grafts; K21.9 Gastro-esophageal reflux disease without esophagitis; D64.9 Anemia, unspecified; Z87.891 Personal history of nicotine dependence; E11.22 Type 2 diabetes mellitus with diabetic chronic kidney disease; Z79.4 Long term (current) use of insulin; M19.90 Unspecified osteoarthritis, unspecified site; E03.9 Hypothyroidism, unspecified; G47.33 Obstructive sleep apnea (adult) (pediatric); E78.5 Hyperlipidemia, unspecified; Z95.1 Presence of aortocoronary bypass graft; I25.10 Atherosclerotic heart disease of native coronary artery without angina pectoris; I48.0 Paroxysmal atrial fibrillation; N40.0 Benign prostatic hyperplasia without lower urinary tract symptoms; N31.9 Neuromuscular dysfunction of bladder, unspecified; Z85.46 Personal history of malignant neoplasm of prostate; Z92.3 Personal history of irradiation; I95.1 Orthostatic hypotension; Z79.899 Other long term (current) drug therapy; Z79.890 Hormone replacement therapy; Z79.84 Long term (current) use of oral hypoglycemic drugs; Z79.01 Long term (current) use of anticoagulants; Z88.1 Allergy status to other antibiotic agents; E11.40 Type 2 diabetes mellitus with diabetic neuropathy, unspecified; I45.10 Unspecified right bundle-branch block; N18.30 Chronic kidney disease, stage 3 unspecified; I49.8 Other specified cardiac arrhythmias; Z90.49 Acquired absence of other specified parts of digestive tract; Z90.79 Acquired absence of other genital organ(s)
CPT/HCPCS: 93312; 93320; 93325; 93005